=== PATIENT | female | born 1975 | race Caucasian/White ===

== ENCOUNTER 2017-02-08 22:32 | Emergency (ER) | payer BC, MEDICAID ==
[~2017-02-08] VITALS: Ht 160 cm; Wt 129.2 kg
[~2017-02-08 22:32] MED LIST: LISI10TA2 PO
[2017-02-08 22:51] VITALS: Ht 160 cm; Wt 129.2 kg
[2017-02-09] MEDS ORDERED: LORAZEPAM 2 MG INJ IV ONE (00:30)
[2017-02-09 00:58] LABS: BASOPHILS % 0.5 % (0.0-2.0); EOSINOPHILS # 0.2 10^3/ul (0.0-0.5); EOSINOPHILS % 2.5 % (0.0-7.0); HEMATOCRIT 29.8 % (37.0-47.0); HEMOGLOBIN 8.8 g/dl (12.0-16.0); LYMPHOCYTES # 2.5 10^3/ul (0.8-2.9); LYMPHOCYTES % 29.2 % (15.0-51.0); MEAN CORPUSCULAR HEMOGLOBIN 22.2 pg (29.0-33.0); MEAN CORPUSCULAR HGB CONC 29.5 g/dl (32.0-37.0); MEAN CORPUSCULAR VOLUME 75.3 fl (82.0-101.0); MEAN PLATELET VOLUME 10.6 fl (7.4-10.4); MONOCYTE # 0.8 10^3/ul (0.3-0.9); MONOCYTES % 9.6 % (0.0-11.0); NEUTROPHIL # 4.9 10^3/ul (1.6-7.5); NEUTROPHILS % 57.7 % (39.0-77.0); PLATELET COUNT 281 10^3/UL (140-415); RED BLOOD COUNT 3.96 10^6/ul (4.20-5.40); RED CELL DISTRIBUTION WIDTH 15.9 % (11.5-14.5); WHITE BLOOD COUNT 8.4 10^3/ul (4.8-10.8)
--- NOTE | 2017-02-09 01:02 | RADRPT ---
PROCEDURE: XR Chest. CLINICAL INDICATION: Chest pain TECHNIQUE: AP Portable chest. COMPARISON: No pertinent prior examinations were submitted for comparison. FINDINGS: There is mild cardiomegaly. The lungs are clear. The osseous structures are unremarkable. IMPRESSION: No acute findings. RPTAT: HIKT .Matthew Kimbrough MD, Date Time Electronically viewed and signed by .Matthew Kimbrough MD, on 02/09/2017 01:02 .T/
[2017-02-09 01:24] LABS: ALANINE AMINOTRANSFERASE 39 IU/L (13-69); ALBUMIN/GLOBULIN RATIO 1.08; ALKALINE PHOSPHATASE 80 IU/L (42-121); ANION GAP 12 (8-16); ASPARTATE AMINO TRANSFERASE 24 IU/L (15-46); BILIRUBIN,INDIRECT 0.3 mg/dl (0-1.1); BILIRUBIN,TOTAL 0.3 mg/dl (0.2-1.3); BLOOD UREA NITROGEN 13 mg/dl (7-20); CALCIUM 8.8 mg/dl (8.4-10.2); CARBON DIOXIDE 28 mmol/L (21-31); CHLORIDE 106 mmol/L (97-110); CREATININE 0.85 mg/dl (0.44-1.00); GLUCOSE 96 mg/dl (70-220); POTASSIUM 3.5 mmol/L (3.5-5.1); SODIUM 142 mmol/L (135-144); TOTAL PROTEIN 7.7 g/dl (6.1-8.1)
[2017-02-09 01:35] LABS: B-TYPE NATRIURETIC PEPTIDE 24 PG/ML (0-125)
[2017-02-09 01:42] LABS: TROPONIN-I < 0.012 ng/ml (0.00-0.12)
--- NOTE | 2017-02-09 02:25 | ERD ---
ER Documentation Chief Complaint Chief Complaint pressure in chest since 1900 with SOB HPI 41-year-old female pressure in her chest is 99 with shortness of breath. She has appears very anxious. Numbness in her tongue. Pins and needles sensation in bilateral fingertips. No nausea no vomiting no chills. Patient said she was very anxious about 1 of her children when she started having the pain. No other current complaints. Pain was mild to moderate intensity when she had a but is currently resolved. ROS All systems reviewed and are negative except as per history of present illness. Medications Home Meds Reported Medications Lisinopril* (Lisinopril*) 10 Mg Tablet, 10 MG PO DAILY, 0 Refills 06/22/09 Allergies Allergies: Coded Allergies: No Known Allergies (Verified Allergy, Mild, 04/11/12) PMhx/Soc History of Surgery: Yes (TUBAL LIGATION) Anesthesia Reaction: No Hx Neurological Disorder: No Hx Respiratory Disorders: No Hx Cardiac Disorders: Yes (HTN) Hx Psychiatric Problems: No Hx Miscellaneous Medical Probl: No Hx Alcohol Use: No Hx Substance Use: No Hx Tobacco Use: No Smoking Status: Never smoker Physical Exam Vitals Vital Signs Date Time Temp Pulse Resp B/P Pulse Ox O2 Delivery O2 Flow Rate FiO2 02/09/17 01:20 84 20 135/85 100 Room Air 02/08/17 22:51 99.0 106 16 168/107 100 Physical Exam Const: [] Head: Atraumatic Eyes: Normal Conjunctiva ENT: Normal External Ears, Nose and Mouth. Neck: Full range of motion..~ No meningismus. Resp: Clear to auscultation bilaterally Cardio: Regular rate and rhythm, no murmurs Abd: Soft, non tender, non distended. Normal bowel sounds Skin: No petechiae or rashes Back: No midline or flank tenderness Ext: No cyanosis, or edema Neur: Awake and alert Psych: Normal Mood and Affect Result Diagram: 02/09/174 02/09/17 0014 Results 24 hrs Laboratory Tests Test 02/09/17 00:14 White Blood Count 8.410^3/ul Red Blood Count 3.9610^6/ul Hemoglobin 8.8g/dl Hematocrit 29.8% Mean Corpuscular Volume 75.3fl Mean Corpuscular Hemoglobin 22.2pg Mean Corpuscular Hemoglobin Concent 29.5g/dl Red Cell Distribution Width 15.9% Platelet Count 03631^3/UL Mean Platelet Volume 10.6fl Neutrophils % 57.7% Lymphocytes % 29.2% Monocytes % 9.6% Eosinophils % 2.5% Basophils % 0.5% Nucleated Red Blood Cells % 0.0/100WBC Neutrophils # 4.910^3/ul Lymphocytes # 2.510^3/ul Monocytes # 0.810^3/ul Eosinophils # 0.210^3/ul Basophils # 0.010^3/ul Nucleated Red Blood Cells # 0.010^3/ul Sodium Level 142mmol/L Potassium Level 3.5mmol/L Chloride Level 106mmol/L Carbon Dioxide Level 28mmol/L Anion Gap 12 Blood Urea Nitrogen 13mg/dl Creatinine 0.85mg/dl Glucose Level 96mg/dl Calcium Level 8.8mg/dl Total Bilirubin 0.3mg/dl Direct Bilirubin 0.00mg/dl Indirect Bilirubin 0.3mg/dl Aspartate Amino Transf (AST/SGOT) 24IU/L Alanine Aminotransferase (ALT/SGPT) 39IU/L Alkaline Phosphatase 80IU/L Troponin I < 0.012ng/ml B-Type Natriuretic Peptide 24PG/ML Total Protein 7.7g/dl Albumin 4.0g/dl Globulin 3.70g/dl Albumin/Globulin Ratio 1.08 Current Medications Medications (Trade) Dose Ordered Sig/Aubrie Route PRN Reason Start Time Stop Time Status Last Admin Dose Admin Lorazepam (Ativan) 1 mg ONCE ONCE IV 02/09/17 00:30 02/09/17 00:31 DC 02/09/17 01:18 Procedures/MDM EKG: Rate/Rhythm: [Normal Sinus Rhythm] QRS, ST, T-waves: [No changes consistent w/ acute ischemia] Impression: [No evidence of ischemia or arrhythmia] Chest X-ray 1V Interpreted by me: Soft Tissue: No acute abnormalities Bones: No acute abnormalities Mediastinum/Cardiac Silhouette/Lungs: [No acute abnormalities] Patient's thoracic symptoms have stabilized while in the department and are stable for outpatient follow up. Exam and work up not consistent w/ ischemia, arrhythmia, PE or dissection. Symptomology consistent with anxiety. Patient did well after Ativan. Will be discharged home Departure Diagnosis: Primary Impression: Chest pain Chest pain type: unspecified Qualified Code: R07.9 - Chest pain, unspecified type Condition: Stable LAXMI CORTEZ Feb 09, 2017 02:25
[2017-02-09] MEDS ORDERED: LORA1TAB PO (02:27)
[2017-02-09 02:37] VITALS: BP 115/64; PULSE 79; RESP 16
== END 2017-02-09 02:38 | disposition home or self-care (01) ==
LOC: E/R 22:32
DX: R07.89 Other chest pain (principal); I10 Essential (primary) hypertension; R40.2142 Coma scale, eyes open, spontaneous, at arrival to emergency department; R40.2252 Coma scale, best verbal response, oriented, at arrival to emergency department; R40.2362 Coma scale, best motor response, obeys commands, at arrival to emergency department; R06.02 Shortness of breath
CPT/HCPCS: 36415; 71010; 80053; 83880; 84484; 85025; 93005; 96374; J2060; Z7502

== ENCOUNTER 2018-01-02 11:50 | Emergency (ER) | END 2018-01-02 14:52 | disposition home or self-care (01) ==

== ENCOUNTER 2018-01-06 10:39 | Emergency (ER) | END 2018-01-06 14:10 | disposition home or self-care (01) ==

== ENCOUNTER 2018-06-16 20:12 | Inpatient (IN) | payer BC ==
[~2018-06-16] VITALS: Ht 165.1 cm; Wt 125.0 kg
[~2018-06-16 20:12] MED LIST changes: +ATOR40TA68 PO; +CEPH-443 PO; +FER325 PO; +HYDR-4011 PO; +LISI-471 PO; -LISI10TA2 PO; +MEDR10TA2 PO; +NORG1TAB14 PO
[2018-06-16] MEDS ORDERED: ATOR40TA68 PO (22:08)
[2018-06-16] MEDS ORDERED: FER325 PO (22:09)
[2018-06-16] MEDS ORDERED: LISI10TA2 PO (22:10)
[2018-06-16] MEDS ORDERED: SOD CHLORIDE 0.9% 0 ML IV ONE (22:15)
[2018-06-16] MEDS ORDERED: ACETAMINOPHEN 325 MG TAB PO PRN (23:00)
[2018-06-16] MEDS ORDERED: ONDANSETRON 4 MG INJ IV PRN (23:00)
--- NOTE | 2018-06-16 23:21 | ERD ---
ER Documentation Chief Complaint Chief Complaint SENT FROM CLINIC FOR HGB 6.2, C/O WEAKNESS AND LT SIDED CP HPI Patient is a 43-year-old female with hypertension who presents for low hemoglobin. The patient was sent by Dr. Evans her manager strategic development for a hemoglobin of 6.2. Her blood was checked yesterday. She feels tired, dizzy, and short of breath. She has had vaginal bleeding for 15 days after her last period. She said that at this point her bleeding is stopped however. ROS All systems reviewed and are negative except as per history of present illness. Medications Home Meds Reported Medications Lisinopril* (Lisinopril*) 10 Mg Tablet, 10 MG PO BID, #30 TAB 06/16/18 Ferrous Sulfate* (Ferrous Sulfate*) 325 Mg Tabec, 325 MG PO BID, TAB 06/16/18 Atorvastatin* (Atorvastatin*) 40 Mg Tablet, 40 MG PO QHS, #30 TAB 06/16/18 Discontinued Reported Medications Hydrocodone/Acetaminophen ([place] 5-325 Tablet) 1 Each Tablet, 1 EACH PO Q6 PRN for SEVERE PAIN LEVEL 7-10, TAB 01/06/18 Atorvastatin* (Atorvastatin*) 40 Mg Tablet, 40 MG PO QHS, #30 TAB 01/06/18 Lisinopril* (Lisinopril*) 20 Mg Tablet, 20 MG PO DAILY, #30 TAB 01/06/18 Discontinued Scripts Ferrous Sulfate* (Ferrous Sulfate*) 325 Mg Tabec, 325 MG PO DAILY, #60 TAB Prov:SKIP SAUNDERS DO 01/06/18 Norgestimate-Ethinyl Estradiol (Sprintec 28 Day Tablet) 1 Each Tablet, 1 EACH PO BID for 3 Days, #2 PACKET 2 po BID x 3 days, then 1 po QD. Skip the last week of pills, and restart new pack at 1 po QD Prov:SKIP SAUNDERS DO 01/06/18 Cephalexin* (Keflex*) 500 Mg Capsule, 500 MG PO BID for 7 Days, CAP Prov:STEPHEN CROWE PA-C 01/02/18 Medroxyprogesterone Acetate* (Provera*) 10 Mg Tablet, 10 MG PO DAILY for 5 Days, TAB Prov:STEPHEN CROWE PA-C 01/02/18 Allergies Allergies: Coded Allergies: No Known Allergies (Verified Allergy, Mild, 06/16/18) PMhx/Soc History of Surgery: Yes (TUBAL LIGATION) Anesthesia Reaction: No Hx Neurological Disorder: No Hx Respiratory Disorders: No Hx Cardiac Disorders: Yes (HTN) Hx Psychiatric Problems: No Hx Miscellaneous Medical Probl: Yes (HIGH SUZI) Hx Alcohol Use: No Hx Substance Use: No Hx Tobacco Use: No Smoking Status: Never smoker FmHx Family History: diabetes Physical Exam Vitals Vital Signs Date Temp Pulse Resp B/P (MAP) Pulse Ox O2 O2 Flow FiO2 Time Delivery Rate 06/16/18 99.9 108 20 140/79 99 Room Air 21:55 (99) 06/16/18 99.9 120 20 168/85 98 20:56 (112) Physical Exam Const: No acute distress Head: Atraumatic Eyes: Pale conjunctiva ENT: Normal External Ears, Nose and Mouth. Neck: Full range of motion. No meningismus. Resp: Clear to auscultation bilaterally Cardio: Regular rate and rhythm, no murmurs Abd: Soft, non tender, non distended. Normal bowel sounds Skin: Pale skin Back: No midline or flank tenderness Ext: No cyanosis, or edema Neur: Awake and alert Psych: Normal Mood and Affect Result Diagram: 06/16/18214606/16/182146 Results 24 hrs Laboratory Tests Test 06/16/18 21:47 06/16/18 21:57 White Blood Count 8.7 10^3/ul Red Blood Count 3.95 10^6/ul Hemoglobin 6.6 g/dl Hematocrit 25.8 % Mean Corpuscular Volume 65.3 fl Mean Corpuscular Hemoglobin 16.7 pg Mean Corpuscular Hemoglobin Concent 25.6 g/dl Red Cell Distribution Width 18.0 % Platelet Count 304 10^3/UL Mean Platelet Volume 9.5 fl Immature Granulocytes % 0.600 % Neutrophils % % Segmented Neutrophils % (Manual) 61 % Lymphocytes % % Lymphocytes % (Manual) 29 % Monocytes % % Monocytes % (Manual) 6 % Eosinophils % % Eosinophils % (Manual) 2 % Basophils % % Basophils % (Manual) 2 % Nucleated Red Blood Cells % 0.0 /100WBC Immature Granulocytes # 0.050 10^3/ul Neutrophils # 10^3/ul Lymphocytes (Manual) 2.5 10^3/ul Lymphocytes # 10^3/ul Monocytes # 10^3/ul Monocytes # (Manual) 0.5 10^3/ul Eosinophils # 10^3/ul Basophils # 10^3/ul Basophils # (Manual) 0.1 10^3/ul Nucleated Red Blood Cells # 10^3/ul Platelet Estimate NORMAL Giant Platelets 3 % Polychromasia 1+ Hypochromasia 2+ Anisocytosis 3+ Microcytosis 3+ Prothrombin Time 12.8 Sec Prothrombin Time Ratio 1.0 INR International Normalized Ratio 0.95 Activated Partial Thromboplast Time 29.1 Sec Sodium Level 142 mmol/L Potassium Level 3.7 mmol/L Chloride Level 103 mmol/L Carbon Dioxide Level 27 mmol/L Anion Gap 12 Blood Urea Nitrogen 10 mg/dl Creatinine 0.57 mg/dl Est Glomerular Filtrat Rate mL/min > 60 mL/min Glucose Level 106 mg/dl Calcium Level 9.4 mg/dl Total Bilirubin 0.5 mg/dl Direct Bilirubin 0.00 mg/dl Indirect Bilirubin 0.5 mg/dl Aspartate Amino Transf (AST/SGOT) 24 IU/L Alanine Aminotransferase (ALT/SGPT) 12 IU/L Alkaline Phosphatase 85 IU/L Troponin I < 0.012 ng/ml Total Protein 8.5 g/dl Albumin 4.5 g/dl Globulin 4.00 g/dl Albumin/Globulin Ratio 1.12 POC Beta HCG, Qualitative NEGATIVE Current Medications Medications Dose Sig/Aubrie Start Time Status Last (Trade) Ordered Route PRN Stop Time Admin Dose Reason Admin Sodium 0 ml @ 0 Q0M ONCE 06/16/18 DC Chloride mls/hr IV 22:15 06/16/18 22:16 Ondansetron 4 mg BRIDGE ORDER 06/16/18 HCl (Zofran PRN IV 23:00 Inj) NAUSEA/VOMITI 06/17/18 22:59 NG 650 mg ER BRIDGE 06/16/18 Acetaminophen PRN PO 23:00 (Tylenol .MILD PAIN 06/17/18 22:59 Tab) 1-3 OR TEMP Procedures/MDM EKG read by me: Rate/Rhythm: Regular rate and rhythm at a normal rate Intervals: Normal Impression: No evidence of ischemia or arrhythmia Patient is a 43-year-old female who presents with dysfunctional uterine bleeding and anemia. Her hemoglobin is below 7 and she will be transfused 2 units of packed red blood cells. I spoke with her manager strategic development who will admit her to the hospital. She may require D&C versus hysterectomy. Critical Care: Time: 35 minutes excluding all billable procedures. Treatments/Evaluations: Close monitoring and treatment of unstable vital signs, cardiorespiratory, and neurologic status, while maintaining tight balance of fluid, respiratory, and cardiac interventions. Departure Diagnosis: Primary Impression: Dysfunctional uterine bleeding Additional Impression: Anemia Anemia type: unspecified type Qualified Codes: D64.9 - Anemia, unspecified Condition: ELIU Brady MD Jun 16, 2018 23:21
[2018-06-17 01:13] VITALS: BP 119/69; PULSE 96; RESP 19
[2018-06-17 01:18] VITALS: Ht 165.1 cm; Wt 125.0 kg
[2018-06-17 02:00] VITALS: BP 118/68; PULSE 92; RESP 19
[2018-06-17] MEDS: ACETAMINOPHEN 325 MG TAB PO PRN ×2 (05:44→12:20)
[2018-06-17] MEDS: FERROUS SULFATE (EC) 325 MG TAB PO SCH ×2 (08:56→20:44)
[2018-06-17] MEDS: LISINOPRIL 10 MG TAB PO SCH ×2 (08:56→20:44)
[2018-06-17 14:12] VITALS: BP 130/67; PULSE 89; RESP 18
[2018-06-17 20:05] VITALS: BP 121/69; PULSE 94; RESP 18
[2018-06-17] MEDS ORDERED: ATORVASTATIN 40 MG TAB PO SCH (21:00)
[2018-06-18 02:05] VITALS: BP 111/59; PULSE 70; RESP 20
[2018-06-18] MEDS: ACETAMINOPHEN 325 MG TAB PO PRN (02:06)
[2018-06-18 07:58] VITALS: BP 117/56; PULSE 77; RESP 19
[2018-06-18] MEDS: FERROUS SULFATE (EC) 325 MG TAB PO SCH (08:42)
[2018-06-18] MEDS: LISINOPRIL 10 MG TAB PO SCH (08:42)
--- NOTE | 2018-06-20 04:28 | PN ---
DATE: 06/18/2018 TIME: 6:30 a.m. SUBJECTIVE: The patient feels good, no dizziness, and no pain in the legs. No vaginal bleeding. OBJECTIVE: She is afebrile. Vital signs stable. No leg tenderness. ASSESSMENT AND PLAN: Fibroid uterus, anemia, and post-blood transfusion. PLAN: Home today and a repeat hematocrit was 30% and the DVT test was negative. So, she is for home today and for D and C on 06/22/2018. Dictated By: ANA LI/CALVIN Conf#: [id number] DID#: [id number]
--- NOTE | 2018-06-20 04:28 | PREOPHP ---
DATE OF ADMISSION: 06/17/2018 HISTORY OF PRESENT ILLNESS: This is a 43-year-old lady, 5, para 4 with 1 . Her last normal menstrual period was about 5 to 6 months ago. She was admitted for blood transfusion through the emergency room. The patient is not bleeding at the time of admission, but hemoglobin is 6.2, so she was admitted for blood transfusion and she was scheduled to have a D and C, hysteroscopy and suc tion curettage done 06/22/2018. She had gone through the emergency room as it was given and co ntrol pills for this menometrorrhagia. PAST MEDICAL HISTORY: No history of TB, asthma. ALLERGIES: NO ALLERGIES. SOCIAL HISTORY: The patient does not smoke. She does not drink. MEDICATIONS: She does not take any drugs except for iron. PAST GYNECOLOGICAL HISTORY: She had menarche at the age of 9, every 28 days interval, 3 to 4 days d uration, and moderate in amount. FAMILY HISTORY: Mother had cancer. Her father has diabetes. PAST OBSTETRICAL HISTORY: She is 5, para 4 with 4 normal deliveries. REVIEW OF SYSTEMS: CARDIOVASCULAR: No chest pains. RESPIRATORY: No cough. GASTROINTESTINAL: No diarrhea, no vomiting. GENITOURINARY: No dysuria. PHYSICAL EXAMINATION: GENERAL: Reveals a conscious, coherent lady and in no acute distress. VITAL SIGNS: Her blood pressure 120/80, pulse rate 80 per minute, respirations 16 minute. BREASTS, HEART AND LUNGS: Within normal limits. ABDOMEN: Soft, obese. PELVIC: Revealed the cervix to be closed. No bleeding noted. EXTREMITIES: No calf tenderness. ASSESSMENT: 1. Fibroid uterus. 2. Menometrorrhagia. 3. Anemia. PLAN: The patient was planned to have 3 units of packed cells to be transfused and repeat her CBC. After the 2 units of packed cells, the CBC was 24%, so she was ordered to have another unit of packed cells and repeat her CBC again and so when he is going to have her surgery, the hematocrit is at [facility] greater than 24%. Dictated By: ANA LI/NTS Conf#: [id number] DID#: [id number]
== END 2018-06-18 11:25 | disposition home or self-care (01) | DRG 812 ==
LOC: E/R 20:12 → PP2 06-17 01:00
PROVIDERS: ADMIT Obstetrics & Gynecology; ATTEND Obstetrics & Gynecology
PROC: 30233N1 Transfusion of Nonautologous Red Blood Cells into Peripheral Vein, Percutaneous Approach (ICD-10-PCS; principal; 2018-06-16)
DX: D64.9 Anemia, unspecified (principal); N92.1 Excessive and frequent menstruation with irregular cycle; D25.9 Leiomyoma of uterus, unspecified
CPT/HCPCS: 36415; 36430; 80053; 81025; 84484; 85014; 85018; 85025; 85610; 85730; 86850; 86900; 86901; 86920; 90686; 93005; 93970; J7040; P9016

== ENCOUNTER 2018-06-22 06:22 | Day surgery (SDC) | payer BC ==
[2018-06-20 17:47] VITALS: BMI 48.4
[~2018-06-22] VITALS: Ht 165.1 cm; Wt 124.5 kg
--- NOTE | 2018-06-22 06:14 | PREOPHP ---
DATE OF ADMISSION: 06/22/2018 HISTORY OF PRESENT ILLNESS: This is a 42-year-old lady, 5, para 4, with 1 . Her las t normal menstrual period was many months ago. She was admitted for D and C, hysteroscopy, and sucti on curettage. This patient had been bleeding on and off for the last 8 months and getting worse up t o the time of admission. She had gone to the emergency room and received a blood transfusion because of anemia. She bleeds on and off and she was bleeding on and off since 09/2017. She was given charito h control pills as well as injection in the emergency room in the hospital, then she continued to ble ed and she just received 3 units of packed cell about a few days prior to this admission after she we nt to the emergency room, the hemoglobin was 6.2. PAST PERSONAL HISTORY: No history of diabetes, TB, asthma. ALLERGIES: NO ALLERGIES. SOCIAL HISTORY: The patient does not smoke. She does not drink. She does not take any drugs. 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 FAMILY HISTORY: Mother had cancer. Father had diabetes. GYNECOLOGIC HISTORY: She had menarche at the age of 9, every 28 days interval, 3 to 4 days duration , and moderate in amount. She is 5, para 4. She had 4 normal deliveries and 1 . REVIEW OF SYSTEMS: CARDIOVASCULAR: No chest pains. RESPIRATORY: No cough. GASTROINTESTINAL: No diarrhea, no vomiting. GENITOURINARY: No dysuria. PHYSICAL EXAMINATION: GENERAL: Reveals a conscious, coherent lady, in no acute distress. VITAL SIGNS: Her blood pressure is 120/80, pulse rate 80 per minute, respirations 16 per minute. BREASTS, HEART AND LUNGS: Within normal limits. ABDOMEN: Soft. No organomegaly and obese. PELVIC: Revealed the cervix to be firm, uterus about 10-week in size, and adnexa were negative for m asses. RECTAL: Confirmed the pelvic findings. EXTREMITIES: No pedal edema. ADMITTING DIAGNOSES: Menometrorrhagia, anemia, fibroid uterus. PLAN: The patient was planned to have the D and C, hysteroscopy and suction curettage. The procedur es were explained to the patient and she understood everything totally. The risks, benefits, and alt ernatives were discussed with her as well. Dictated By: ANA LI/CALVIN Conf#: [id number] [facility]#: [id number]
[~2018-06-22 06:22] MED LIST changes: -CEPH-443 PO; -HYDR-4011 PO; -LISI-471 PO; +LISI10TA2 PO; -MEDR10TA2 PO; -NORG1TAB14 PO
[2018-06-22 07:00] VITALS: BP 120/58; PULSE 93; RESP 16; Ht 165.1 cm; Wt 124.5 kg
[2018-06-22] MEDS ORDERED: LIDOCAINE 2% (SDV) 5 ML INJ ONE (07:00)
[2018-06-22] MEDS ORDERED: CEFAZOLIN 1 GM INJ ONE (07:00)
[2018-06-22] MEDS ORDERED: DEXAMETHASONE 4 MG/ML 5 ML INJ ONE (07:00)
[2018-06-22] MEDS ORDERED: METOCLOPRAMIDE 10 MG INJ ONE (07:00)
[2018-06-22] MEDS ORDERED: SEVOFLURANE 15 MIN ONE (07:00)
[2018-06-22] MEDS ORDERED: ONDANSETRON 4 MG INJ ONE (07:00)
[2018-06-22] MEDS ORDERED: FER325 PO (07:28)
--- NOTE | 2018-06-22 08:17 | PREAC ---
Date/Time of Note Date/Time of Note DATE: 06/22/18 TIME: 08:14 Anesthesia Eval and Record Evaluation Time Pre-Procedure Interview DATE: 06/22/18 TIME: 08:14 Age 43 Sex female NPO: 8 hrs Preoperative diagnosis uterine bleeding Planned procedure hysteroscopy Past Medical History Past Medical History: Includes Cardio: HTN, Dyslipidemia Endo: Diabetes, Hypothyroid Heme: Other (s/p transfusion) Surgery & Anesthesia Issues No known issue Meds Anticoagulation: No Beta Lulú within 24 hr: No Reason Beta Lulú not given: Pt. not on B-Lulú Reported Medications Ferrous Sulfate* (Ferrous Sulfate*) 325 Mg Tabec, 325 MG PO TID, TAB 06/22/18 Lisinopril* (Lisinopril*) 10 Mg Tablet, 10 MG PO BID, #30 TAB 06/16/18 Atorvastatin* (Atorvastatin*) 40 Mg Tablet, 40 MG PO QHS, #30 TAB 06/16/18 Discontinued Reported Medications Ferrous Sulfate* (Ferrous Sulfate*) 325 Mg Tabec, 325 MG PO BID, TAB 06/16/18 Hydrocodone/Acetaminophen ([place] 5-325 Tablet) 1 Each Tablet, 1 EACH PO Q6 PRN for SEVERE PAIN LEVEL 7-10, TAB 01/06/18 Atorvastatin* (Atorvastatin*) 40 Mg Tablet, 40 MG PO QHS, #30 TAB 01/06/18 Lisinopril* (Lisinopril*) 20 Mg Tablet, 20 MG PO DAILY, #30 TAB 01/06/18 Discontinued Scripts Ferrous Sulfate* (Ferrous Sulfate*) 325 Mg Tabec, 325 MG PO DAILY, #60 TAB Prov:SKIP SAUNDERS DO 01/06/18 Norgestimate-Ethinyl Estradiol (Sprintec 28 Day Tablet) 1 Each Tablet, 1 EACH PO BID for 3 Days, #2 PACKET 2 po BID x 3 days, then 1 po QD. Skip the last week of pills, and restart new pack at 1 po QD Prov:SKIP SAUNDERS DO 01/06/18 Cephalexin* (Keflex*) 500 Mg Capsule, 500 MG PO BID for 7 Days, CAP Prov:STEPHEN CROWE PA-C 01/02/18 Medroxyprogesterone Acetate* (Provera*) 10 Mg Tablet, 10 MG PO DAILY for 5 Days, TAB Prov:STEPHEN CROWE PA-C 01/02/18 Meds reviewed: Yes Allergies Coded Allergies: No Known Allergies (Verified Allergy, Mild, 06/22/18) Allergies Reviewed: Yes Labs/Studies Labs Reviewed: Reviewed by anesthesiologist Result Diagram: 06/22/18 0730 Laboratory Tests 06/22/18 07:30 test: Negative Pre-procedure Exam Last vitals Vital Signs Date Temp Pulse Resp B/P (MAP) Pulse Ox O2 O2 Flow FiO2 Time Delivery Rate 06/22/18 97.1 93 16 120/58 100 07:00 (78) Airway: Adequate mouth opening, Adequate thyromental dist Mallampati: Mallampati III Teeth: Normal Lung: Normal Heart: Normal ASA Physical Status ASA physical status: 3 Emergency: None Planned Anesthetic General/MAC: LMA Planned Pain Management Parenteral pain med, Local by surgeon Pre-operative Attestations Prior to commencing anesthesia and surgery, the patient was re-evaluated, there was verification of: *The patient's identity *The results of appropriate recent lab work and preoperative vital signs *The above evaluation not changing prior to induction *Anesthetic plan, risk benefits, alternative and complications discussed with patient/family; questions answered; patient/family understands, accepts and wishes to proceed. JIM SALDIVAR MD Jun 22, 2018 08:17
[2018-06-22] MEDS ORDERED: FENTAnyl 50 MCG/ML VIAL ONE ×2 (08:21→09:16)
[2018-06-22] MEDS ORDERED: MIDAZOLAM 1 MG/ML 2 ML INJ ONE (08:22)
[2018-06-22] MEDS ORDERED: PROPOFOL 20 ML ONE (08:22)
[2018-06-22] MEDS ORDERED: MIDAZOLAM 1 MG/ML 2 ML INJ IV PRN (08:30)
[2018-06-22] MEDS ORDERED: MEPERIDINE 25 MG INJ IV PRN (08:30)
[2018-06-22] MEDS ORDERED: LEVALBUTEROL (NEB) 1.25 MG/0.5 ML AMP HHN PRN (08:30)
[2018-06-22] MEDS ORDERED: FENTAnyl 50 MCG/ML VIAL IV PRN ×2 (08:30)
[2018-06-22] MEDS ORDERED: hydrALAzine 20 MG INJ IV PRN (08:30)
[2018-06-22] MEDS ORDERED: DIPHENHYDRAMINE 50 MG INJ IV PRN (08:30)
[2018-06-22] MEDS ORDERED: HYDROmorphONE 1 MG/5 ML IV SYRINGE IV PRN ×2 (08:30)
[2018-06-22] MEDS ORDERED: LABETALOL HCL 20MG INJ IV PRN (08:30)
[2018-06-22] MEDS ORDERED: ONDANSETRON 4 MG INJ IV PRN (08:30)
[2018-06-22 09:09] VITALS: BP 107/52; PULSE 106; RESP 17
--- NOTE | 2018-06-22 09:12 | PAC ---
Date/Time of Note Date/Time of Note DATE: 06/22/18 TIME: 09:12 Post-Anesthesia Notes Post-Anesthesia Note Last documented vital signs Vital Signs Date Temp Pulse Resp B/P (MAP) Pulse Ox O2 O2 Flow FiO2 Time Delivery Rate 06/22/18 99.9 09:08 06/22/18 93 16 120/58 100 07:00 (78) Activity: WNL Respiratory function: WNL Cardiovascular function: WNL Mental status: Baseline Pain reasonably controlled: Yes Hydration appropriate: Yes Nausea/Vomiting absent: Yes JIM SALDIVAR MD Jun 22, 2018 09:12
[2018-06-22 09:14] VITALS: BP 94/43; PULSE 100; RESP 16
[2018-06-22 09:19] VITALS: BP 82/47; PULSE 100; RESP 20
[2018-06-22 09:24] VITALS: BP 92/40; PULSE 96; RESP 21
--- NOTE | 2018-06-22 09:32 | OPR ---
DATE OF OPERATION: 06/22/2018 PREOPERATIVE DIAGNOSES: Anemia, menometrorrhagia, fibroid. POSTOPERATIVE DIAGNOSES: Anemia, menometrorrhagia, fibroid. Pending pathology report. MARKETING FORECASTER: Nichelle higginbotham. ANESTHESIA: General. ANESTHESIOLOGIST: Dr. Braga. OPERATION PERFORMED: Fractional dilation and curettage, hysteroscopy and suction curettage. OPERATIVE TECHNIQUE: Under general anesthesia, the patient was prepped and draped in the usual fashi on for vaginal surgery. Pelvic exam under anesthesia revealed the cervix to be firm, uterus of ana l size, and adnexa were negative for masses. Then, the heavy weight vaginal retractor was put in ren ce and the anterior lip of the cervix was grasped with an Allis clamp. Endocervical dilatation up to [place] 6 was proceeded. Uterus was sounded to about 3 inches. The hysteroscope was inserted inside the uterine cavity and connected with the light source. Then the uterus was distended with normal sa line. There were no polyps nor fibroids seen. Endometrial curettage was done and a good amount of t issue was obtained. Suction tip size 6 was inserted inside the uterine cavity and connected with the light source. The uterus was distended and the suction tip size 6 was inserted inside the uterine c avity and connected to the suction machine. Suction curettage was done and good amount of tissue was obtained. The uterus was intact during and after the procedure. The patient tolerated the procedur e well. Estimated blood loss was minimal. Vital signs were stable during and after the procedure. Dictated By: ANA MUNIZ MD NS/NTS Conf#: [id number] DID#: [id number] CC: ANA MUNIZ MD;*EndCC*
--- NOTE | 2018-06-22 09:38 | SIPON ---
Date/Time of Note Date/Time of Note DATE: 06/22/18 TIME: 09:37 Operative Report Preoperative Diagnosis MENORRHAGIA ANEMIA Postoperative Diagnosis MENORRHAGIA ANEMIA Operation/Procedure Performed D&C HYSTEROSOCPY SUCTION CURETTAGE Surgeon see signature line assistant executive housekeeper COLLISION TECHNICIAN Anesthesia: general Estimated blood loss: minimal Transfusion Required none Specimen ECC EMC SUCTION CURETTAGE Grafts/Implants none Complications none ANA MUNIZ MD Jun 22, 2018 09:38
[2018-06-22] MEDS ORDERED: ACETAMINOPHEN 325 MG TAB PO PRN (10:00)
[2018-06-22 10:06] VITALS: BP 108/56; PULSE 96; RESP 18
== END 2018-06-22 11:00 | disposition home or self-care (01) ==
LOC: SDS 06:22
PROVIDERS: ATTEND Obstetrics & Gynecology
DX: N92.0 Excessive and frequent menstruation with regular cycle (principal); D64.9 Anemia, unspecified; D25.9 Leiomyoma of uterus, unspecified; I10 Essential (primary) hypertension; E78.5 Hyperlipidemia, unspecified; E11.9 Type 2 diabetes mellitus without complications; R10.2 Pelvic and perineal pain
CPT/HCPCS: 58558; 84702; 85014; 85018; 86850; 86900; 86901; 88305; J0690; J1100; J2250; J2405; J2765; J3010; Z7512; Z7610

== ENCOUNTER 2018-06-27 06:45 | Emergency (ER) | payer BC ==
[~2018-06-27] VITALS: Ht 165.1 cm; Wt 125.1 kg
[2018-06-27 06:47] VITALS: Ht 165.1 cm; Wt 125.1 kg
[2018-06-27] MEDS ORDERED: ALBU8.5H8 INH (08:33)
[2018-06-27] MEDS ORDERED: BENZ-6 PO (09:42)
[2018-06-27 09:44] VITALS: BP 148/81; PULSE 89; RESP 17
--- NOTE | 2018-06-27 12:09 | ERD ---
ER Documentation Chief Complaint Chief Complaint vag bleed x 3 days , passing clots h/o anemia HPI Is a 43-year-old female with hypertension, anemia, and high cholesterol presents with vaginal bleeding. Her symptoms started on Wednesday night. She had pain and cough. She says the pain is worse with coughing. She had a D&C done on June [address] Evans her motorcycle police officer. Upon review of old medical records this is the patient's 11th visit to the ER since 2006. ROS All systems reviewed and are negative except as per history of present illness. Medications Home Meds Active Scripts Benzonatate* (Tessalon Perle*) 100 Mg Capsule, 100 MG PO Q8H PRN for COUGH, #30 CAP Prov:ELIU HULL MD 06/27/18 Reported Medications Albuterol Sulfate* (Proair HFA*) 8.5 Gm Hfa.aer.ad, 2 PUFF INH Q4H PRN for WHEEZING AND SOB, #1 INHALER 06/27/18 Ferrous Sulfate* (Ferrous Sulfate*) 325 Mg Tabec, 325 MG PO TID, TAB 06/22/18 Lisinopril* (Lisinopril*) 10 Mg Tablet, 10 MG PO BID, #30 TAB 06/16/18 Atorvastatin* (Atorvastatin*) 40 Mg Tablet, 40 MG PO QHS, #30 TAB 06/16/18 Discontinued Reported Medications Ferrous Sulfate* (Ferrous Sulfate*) 325 Mg Tabec, 325 MG PO BID, TAB 06/16/18 Allergies Allergies: Coded Allergies: No Known Allergies (Verified Allergy, Mild, 06/27/18) PMhx/Soc History of Surgery: Yes (BTL) Anesthesia Reaction: No Hx Neurological Disorder: No Hx Respiratory Disorders: No Hx Cardiac Disorders: Yes (HTN) Hx Psychiatric Problems: No Hx Miscellaneous Medical Probl: No Hx Alcohol Use: Yes (OCC) Hx Substance Use: No Hx Tobacco Use: No Smoking Status: Never smoker FmHx Family History: diabetes Physical Exam Vitals Vital Signs Date Temp Pulse Resp B/P (MAP) Pulse Ox O2 O2 Flow FiO2 Time Delivery Rate 06/27/18 98.4 89 17 148/81 99 Room Air 09:44 (103) 06/27/18 98.1 90 18 144/76 98 06:47 (98) Physical Exam Const: No acute distress Head: Atraumatic Eyes: Normal Conjunctiva ENT: Normal External Ears, Nose and Mouth. Neck: Full range of motion. No meningismus. Resp: Clear to auscultation bilaterally Cardio: Regular rate and rhythm, no murmurs Abd: Soft, non tender, non distended. Normal bowel sounds Skin: No petechiae or rashes Back: No midline or flank tenderness Ext: No cyanosis, or edema Neur: Awake and alert Psych: Normal Mood and Affect Result Diagram: 06/27/18 0715 06/27/18 0715 Results 24 hrs Laboratory Tests Test 06/27/18 07:15 White Blood Count 5.3 10^3/ul Red Blood Count 4.43 10^6/ul Hemoglobin 9.3 g/dl Hematocrit 32.0 % Mean Corpuscular Volume 72.2 fl Mean Corpuscular Hemoglobin 21.0 pg Mean Corpuscular Hemoglobin Concent 29.1 g/dl Red Cell Distribution Width 25.5 % Platelet Count 221 10^3/UL Mean Platelet Volume 10.2 fl Immature Granulocytes % 0.400 % Neutrophils % 60.0 % Lymphocytes % 21.8 % Monocytes % 10.2 % Eosinophils % 6.8 % Basophils % 0.8 % Nucleated Red Blood Cells % 0.0 /100WBC Immature Granulocytes # 0.020 10^3/ul Neutrophils # 3.2 10^3/ul Lymphocytes # 1.2 10^3/ul Monocytes # 0.5 10^3/ul Eosinophils # 0.4 10^3/ul Basophils # 0.0 10^3/ul Nucleated Red Blood Cells # 0.0 10^3/ul Urine Color STRAW Urine Clarity CLEAR Urine pH 6.0 Urine Specific [place] 1.005 Urine Ketones NEGATIVE mg/dL Urine Nitrite NEGATIVE mg/dL Urine Bilirubin NEGATIVE mg/dL Urine Urobilinogen NEGATIVE mg/dL Urine Leukocyte Esterase NEGATIVE Rachel/ul Urine Microscopic RBC 0 /HPF Urine Microscopic WBC 0 /HPF Urine Hemoglobin NEGATIVE mg/dL Urine Glucose NEGATIVE mg/dL Urine Total Protein NEGATIVE mg/dl Sodium Level 140 mmol/L Potassium Level 3.9 mmol/L Chloride Level 104 mmol/L Carbon Dioxide Level 24 mmol/L Anion Gap 12 Blood Urea Nitrogen 11 mg/dl Creatinine 0.54 mg/dl Est Glomerular Filtrat Rate mL/min > 60 mL/min Glucose Level 99 mg/dl Calcium Level 8.7 mg/dl Total Bilirubin 0.7 mg/dl Direct Bilirubin 0.00 mg/dl Indirect Bilirubin 0.7 mg/dl Aspartate Amino Transf (AST/SGOT) 19 IU/L Alanine Aminotransferase (ALT/SGPT) 18 IU/L Alkaline Phosphatase 83 IU/L Total Protein 7.9 g/dl Albumin 4.2 g/dl Globulin 3.70 g/dl Albumin/Globulin Ratio 1.13 Beta HCG, Quantitative < 2.4 mIU/ml Procedures/MDM Ultrasound of the pelvis done by radiology. Patient is a 43-year-old female presents with vaginal bleeding with dysfunctional uterine bleeding. I doubt or ectopic . Her hemoglobin is greater than 9 and she does not require transfusion. I spoke with her motorcycle police officer who asked me to discharge the patient and send her directly to the office for repeat D&C. The patient can return for any worsening symptoms. Departure Diagnosis: Primary Impression: Vaginal bleeding Condition: Fair Patient Instructions: Dysfunctional Uterine Bleeding Referrals: ANA EVANS MD Additional Instructions: Dr. Evans would like to see you in her office today. Go directly there. ELIU HULL MD Jun 27, 2018 12:09
== END 2018-06-27 09:45 | disposition home or self-care (01) ==
LOC: E/R 06:45
DX: N93.9 Abnormal uterine and vaginal bleeding, unspecified (principal); I10 Essential (primary) hypertension; R10.2 Pelvic and perineal pain
CPT/HCPCS: 36415; 71045; 76856; 80053; 81003; 84702; 85025; 86900; 86901; Z7502

== ENCOUNTER 2018-08-09 18:14 | Emergency (ER) | payer BC ==
[~2018-08-09] VITALS: Ht 165.1 cm; Wt 121.0 kg
[~2018-08-09 18:14] MED LIST changes: +ALBU8.5H8 INH; +BENZ-6 PO
[2018-08-09 18:25] VITALS: Ht 165.1 cm; Wt 121.0 kg
[2018-08-09] MEDS ORDERED: SOD CHLORIDE 0.9% 1,000 ML IV STA (20:02)
[2018-08-09] MEDS ORDERED: IBUP-1542 PO (22:25)
[2018-08-09 22:37] VITALS: BP 119/69; PULSE 87; RESP 19
--- NOTE | 2018-08-10 05:24 | ERD ---
ER Documentation Chief Complaint Chief Complaint C/O ON AND OFF VAGINAL BLEEDING X2 MONTHS, ON AND OFF DIZZINESS X3 DAYS HPI 43-year-old G5, female with history of iron deficient anemia who presents to the ED complaining of intermittent vaginal bleeding status post D&C procedure done 2 months ago. Patient states she has been intermittently dizzy and lightheaded over the past 3 days. She saw her COVER CREASER today who referred her here for further evaluation. Patient has been taking Provera 10 mg daily but states she has gone through 12 pads over the past 3 days and started to feel dizzy. She is scheduled for hysterectomy in August. She denies any urinary symptoms, denies any associated abdominal pain, nausea, vomiting or any other symptoms. ROS All systems reviewed and are negative except as per history of present illness. Medications Home Meds Active Scripts Ibuprofen* (Motrin*) 600 Mg Tab, 600 MG PO Q6H PRN for PAIN AND OR ELEVATED TEMP, #30 TAB Prov:TANK BONILLA PA-C 08/09/18 Benzonatate* (Tessalon Perle*) 100 Mg Capsule, 100 MG PO Q8H PRN for COUGH, #30 CAP Prov:ELIU HULL MD 06/27/18 Reported Medications Albuterol Sulfate* (Proair HFA*) 8.5 Gm Hfa.aer.ad, 2 PUFF INH Q4H PRN for WHEEZING AND SOB, #1 INHALER 06/27/18 Ferrous Sulfate* (Ferrous Sulfate*) 325 Mg Tabec, 325 MG PO TID, TAB 06/22/18 Lisinopril* (Lisinopril*) 10 Mg Tablet, 10 MG PO BID, #30 TAB 06/16/18 Atorvastatin* (Atorvastatin*) 40 Mg Tablet, 40 MG PO QHS, #30 TAB 06/16/18 Allergies Allergies: Coded Allergies: No Known Allergies (Verified Allergy, Mild, 06/27/18) PMhx/Soc Medical and Surgical Hx: pt denies Medical Hx, pt denies Surgical Hx History of Surgery: Yes (BTL) Anesthesia Reaction: No Hx Neurological Disorder: No Hx Respiratory Disorders: No Hx Cardiac Disorders: Yes (HTN) Hx Psychiatric Problems: No Hx Miscellaneous Medical Probl: No Hx Alcohol Use: Yes (OCC) Hx Substance Use: No Hx Tobacco Use: No Smoking Status: Never smoker Physical Exam Vitals Vital Signs Date Temp Pulse Resp B/P (MAP) Pulse Ox O2 O2 Flow FiO2 Time Delivery Rate 08/09/18 98.1 87 19 119/69 100 Room Air 22:37 (86) 08/09/18 99.1 108 19 153/85 100 18:25 (107) Physical Exam Const: No acute distress Head: Atraumatic Eyes: Normal Conjunctiva ENT: Normal External Ears, Nose and Mouth. Neck: Full range of motion. No meningismus. Resp: Clear to auscultation bilaterally Cardio: Regular rate and rhythm, no murmurs Abd: Soft, non tender, non distended. Normal bowel sounds Skin: No petechiae or rashes Back: No midline or flank tenderness Ext: No cyanosis, or edema Neur: Awake and alert Psych: Normal Mood and Affect Result Diagram: 08/09/18204208/09/182042 Results 24 hrs Laboratory Tests Test 08/09/18 20:43 White Blood Count 8.2 10^3/ul Red Blood Count 4.03 10^6/ul Hemoglobin 8.9 g/dl Hematocrit 30.2 % Mean Corpuscular Volume 74.9 fl Mean Corpuscular Hemoglobin 22.1 pg Mean Corpuscular Hemoglobin Concent 29.5 g/dl Red Cell Distribution Width 18.3 % Platelet Count 303 10^3/UL Mean Platelet Volume 10.0 fl Immature Granulocytes % 0.200 % Neutrophils % 59.9 % Lymphocytes % 28.1 % Monocytes % 8.9 % Eosinophils % 2.3 % Basophils % 0.6 % Nucleated Red Blood Cells % 0.0 /100WBC Immature Granulocytes # 0.020 10^3/ul Neutrophils # 4.9 10^3/ul Lymphocytes # 2.3 10^3/ul Monocytes # 0.7 10^3/ul Eosinophils # 0.2 10^3/ul Basophils # 0.1 10^3/ul Nucleated Red Blood Cells # 0.0 10^3/ul Urine Color YELLOW Urine Clarity SLIGHTLY CLOUDY Urine pH 5.0 Urine Specific [place] 1.021 Urine Ketones NEGATIVE mg/dL Urine Nitrite NEGATIVE mg/dL Urine Bilirubin NEGATIVE mg/dL Urine Urobilinogen NEGATIVE mg/dL Urine Leukocyte Esterase NEGATIVE Rachel/ul Urine Microscopic RBC 131 /HPF Urine Microscopic WBC 1 /HPF Urine Bacteria FEW /HPF Urine Mucus MODERATE /HPF Urine Hemoglobin 3+ mg/dL Urine Glucose NEGATIVE mg/dL Urine Total Protein NEGATIVE mg/dl Sodium Level 143 mmol/L Potassium Level 3.8 mmol/L Chloride Level 107 mmol/L Carbon Dioxide Level 25 mmol/L Anion Gap 11 Blood Urea Nitrogen 14 mg/dl Creatinine 0.72 mg/dl Est Glomerular Filtrat Rate mL/min > 60 mL/min Glucose Level 95 mg/dl Calcium Level 9.4 mg/dl Beta HCG, Quantitative < 2.4 mIU/ml Current Medications Medications Dose Sig/Aubrie Start Time Status Last (Trade) Ordered Route PRN Stop Time Admin Dose Reason Admin Sodium 1,000 ml @ Q1H STAT 08/09/18 DC 08/09/18 Chloride 1,000 mls/hr IV 20:02 20:45 08/09/18 21:01 Procedures/MDM LABS CBC: + Hemoglobin of 8.9, hematocrit 30.2. BMP: no e/o severe acidosis, alkalosis, renal failure, diabetic ketoacidosis Urine: no e/o acute infection or hematuria beta hcg: < 5 DIAGNOSTIC IMAGING: PROCEDURE: US Pelvis FINDINGS: There is a heterogeneous enlarged uterus measuring 7.6 x 7.1 x 11.5 cm . There is approximately 4.2 x 5.4 cm heterogeneous mass with vascularity in the mid aspect of the uterus. The endometrial stripe is not well visualized. The right ovary measures 3.7 x 2 x 1.8 cm in dimension. The left ovary is not well visualized. There are no adnexal masses. There is no significant free fluid in the pelvis. No other incidental abnormality is identified. IMPRESSION: 1. Enlarged heterogeneous uterus with a large intramural fibroid measuring 4.2 x 5.4 cm, not significantly changed. 2. The endometrial stripe is not well visualized. 3. Normal right ovary. Nonvisualization of the left ovary. 4. No adnexal masses. No free fluid in the pelvis. ED COURSE: The patient was given 1 liter of IVFs The medication was well tolerated and the patient had market improvement in symptoms. The patient remained stable throughout ED course. MEDICAL DECISION MAKIN-year-old G5, female with history of anemia with recent D&C procedure last month presents with vaginal bleeding and dizziness. CBC with e/o anemia however hemoglobin is greater than 7. She does not meet criteria for blood transfusion at this time. She felt significant better status post IV fluids. She is otherwise hemodynamically stable. Pelvic ultrasound with evidence of fibroids which could be cause of patient's bleeding. Patient has an appointment for hysterectomy in August. I recommended she take copies of today's reports and follow-up with her COVER CREASER in the next 3 days. Strict return precautions were discussed. PRESCRIPTIONS: Ibuprofen SPECIALIST FOLLOW UP RECOMMENDED: None Patient has been advised to follow up with primary care in 1-2 days. Blood Pressure Assessment: Patient's blood pressure was elevated (>120/80) but appears stable without evidence of hypertension emergency or urgency. The patient was counseled about the risks of hypertension and urged to pursue outpatient monitoring and therapy within a week with their primary care physician. Departure Diagnosis: Primary Impression: Vaginal bleeding Additional Impression: Anemia Anemia type: iron deficiency Iron deficiency anemia type: unspecified iron deficiency Qualified Codes: D50.9 - Iron deficiency anemia, unspecified Condition: Stable Patient Instructions: Anemia, Uterine Fibroids Additional Instructions: Please take copies of your imaging and lab reports from today and follow-up with your COVER CREASER sometime this week. If the symptoms get worse and your provider is unavailable, return to the Emergency Department immediately. TANK BONILLA PA-C August 10, 2018 05:24
== END 2018-08-09 22:39 | disposition home or self-care (01) ==
LOC: FTE 18:14
DX: N93.9 Abnormal uterine and vaginal bleeding, unspecified (principal); I10 Essential (primary) hypertension; D50.9 Iron deficiency anemia, unspecified
CPT/HCPCS: 36415; 76830; 76856; 80048; 81001; 84702; 85025; 86850; 86900; 86901; J7030; Z7502